=== PATIENT | male | born 1960 | race Caucasian/White ===

== ENCOUNTER 2024-03-07 06:09 | Day surgery (SDC) | payer BC, SELFPAY ==
[2024-03-07] VITALS (8 sets, daily range): BP systolic 119–137; BP diastolic 83–94; BMI 32.4
[2024-03-07] MEDS: NORMOSOL-R 1000 IV (06:51)
== END 2024-03-07 10:31 | disposition home or self-care (01) ==
LOC: SDS 06:09
PROVIDERS: ATTENDING PHYSICIAN Specialist; REFERRING PHYSICIAN Surgery
DX: L73.2 Hidradenitis suppurativa (principal); Z87.448 Personal history of other diseases of urinary system
CPT/HCPCS: 11421; 11471; 88304